=== PATIENT | female | born 2000 | race Caucasian/White ===

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

== ENCOUNTER 2022-01-03 23:30 | Emergency (ER) | payer OTHER ==
[2022-01-04 00:46] LABS: BASOPHILS % (AUTO) 0.3 %; MEAN CORPUSCULAR VOLUME 87.4 fL (81.0-99.0)
[2022-01-04 00:48] LABS: BILIRUBIN,URINE NEGATIVE (NEGATIVE); GLUCOSE, URINE (UA) NEGATIVE (NEGATIVE); KETONES,URINE (UA) >=80 mg/dL (NEGATIVE); LEUKOCYTE ESTERASE, URINE SMALL (NEGATIVE); NITRITE,URINE POSITIVE (NEGATIVE); OCCULT BLOOD,URINE MODERATE (NEGATIVE); PROTEIN,URINE 30 mg/dL (NEGATIVE); UROBILINOGEN,URINE 0.2 (NORMAL) E.U./dL (NORMAL)
[2022-01-04 00:49] LABS: EOSINOPHILS % (AUTO) 0.1 %; HCT - HEMATOCRIT 36.1 % (37.0-47.0); HGB - HEMOGLOBIN 12.2 g/dL (12.0-16.0); LYMPHOCYTES % (AUTO) 9.6 %; MEAN CORPUSCULAR HEMOGLOBIN 29.5 pg (27.0-31.0); MEAN CORPUSCULAR HGB CONC 33.8 g/dL (32.0-36.0); MEAN PLATELET VOLUME 10.1 fL (7.9-10.8); MONOCYTES % (AUTO) 10.3 %; NEUTROPHILS % (AUTO) 79.2 %; PLT - PLATELET COUNT 229 10^3/uL (130-450); RED BLOOD COUNT 4.13 10^6/uL (4.20-5.40); RED CELL DISTRIBUTION WIDTH 12.4 % (12.0-15.0); WHITE BLOOD COUNT 15.3 x10^3/uL (4.8-10.8)
[2022-01-04 00:49] LABS: CLARITY,URINE HAZY (CLEAR)
[2022-01-04 00:50] LABS: HCG UR QUAL NEGATIVE
[2022-01-04 00:53] LABS: ABNORMAL LYMPHS % (MANUAL) 0 %
[2022-01-04 00:55] LABS: BACTERIA,URINE Moderate /HPF (None Seen); RBC,URINE 0-5 /HPF (0-5); SQUAMOUS EPITHELIAL CELL,UR RARE Squamous (<= Few); WBC,URINE >25 /HPF (0-5)
[2022-01-04 00:59] LABS: ALBUMIN 3.6 g/dL (3.2-5.5); BILIRUBIN,TOTAL 0.8 mg/dL (0.2-1.0); CREATININE 0.9 mg/dL (0.4-1.0); POTASSIUM 3.4 mmol/L (3.5-5.0); TOTAL PROTEIN 7.3 g/dL (6.7-8.2)
[2022-01-04] MEDS ORDERED: ACETAMINOPHEN 325 MG TABLET PO STA (01:13)
[2022-01-04 01:24] LABS: BAND NEUTROPHILS % (MANUAL) 3 %; DIFFERENTIAL COMMENT MANUAL DIFFERENTIAL; LYMPHOCYTES # (MANUAL) 2.1 10^3/uL (1.5-3.5); LYMPHOCYTES % (MANUAL) 14 %; MONOCYTES # (MANUAL) 1.4 10^3/uL (0.0-1.0); NEUTROPHILS # (MANUAL) 11.8 10^3/uL (1.5-6.6); PLATELET ESTIMATE, MANUAL NORMAL (130-450,000) (NORMAL); RBC MORPHOLOGY (MULTIPLE) NORMAL APPEARANCE (NORMAL)
--- NOTE | 2022-01-04 01:56 | ED Physician Documentation ---
PD HPI FEMALE - Stated complaint Stated Complaint: FEVER/BACK PX - Chief complaint Chief Complaint: Abd Pain - History obtained from History obtained from: Patient - History of Present Illness Timing - onset: Yesterday - Additional information Additional information: 21-year-old female with no significant past medical history presents for evaluation of fever and urinary frequency. Associated aching, constant, nonradiating right flank pain. This is never happened before. Mother gave patient 600 mg of Tylenol at 4 PM today. They were on their way to a different hospital, however the bridge was closed and so they came here instead. Patient denies known sick contacts, denies dysuria, hematuria, vaginal discharge. Review of Systems Ten Systems: 10 systems reviewed and negative Constitutional: reports: Fever, Chills Eyes: denies: Loss of vision, Decreased vision, Photophobia : reports: Frequency, Other (R flank pain). denies: Dysuria, Hesitancy, Unable to Void, Incontinent Skin: denies: Rash, Lesions, Abrasion (s) PD PAST MEDICAL HISTORY - Past Medical History Past Medical History: Yes Psych: Depression - Past Surgical History Past Surgical History: No - Present Medications Home Medications: Ambulatory Orders Medication Instructions Recorded Confirmed Duloxetine HCl [Cymbalta] 60 mg PO DAILY 01/21/21 01/04/22 Ondansetron Odt [Zofran] 4 mg TL Q6H PRN #10 tablet 01/04/22 cephALEXin [Keflex] 500 mg PO BID #28 cap 01/04/22 - Allergies Allergies/Adverse Reactions: Allergies Allergy/AdvReac Type Severity Reaction Status Date / Time No Known Drug Allergies Allergy Verified 01/04/22 00:19 - Social History Does the pt smoke?: Yes Smoking Status: Current every day smoker Does the pt drink ETOH?: No Does the pt have substance abuse?: No - Immunizations Immunizations are current?: Yes - POLST Patient has POLST: No PD ED PE NORMAL - Vitals Vital signs reviewed: Yes - General General: Alert and oriented X 3, No acute distress, Well developed/nourished - HEENT HEENT: Atraumatic, PERRL, EOMI - Neck Neck: Supple, no meningeal sign, No bony TTP, No adenopathy, C-Spine cleared by NEXUS criteria - Cardiac Cardiac: No murmur, Strong equal pulses, Other (tachycardia) - Respiratory Respiratory: No respiratory distress, Clear bilaterally - Abdomen Abdomen: Soft, Non tender, Non distended, No organomegaly - Female Female : Deferred - Back Back: No spinal TTP, Other (R sided CVA ttp) - Derm Derm: Normal color, Warm and dry, No rash - Extremities Extremities: No deformity, No tenderness to palpate, Normal ROM s pain, No edema - Neuro Neuro: Alert and oriented X 3, security auditor 2-12 intact, No motor deficit, No sensory deficit - Psych Psych: Normal mood, Normal affect Results - Vitals Vitals: Vital Signs - 24 hr 01/04/22 01/04/22 01/04/22 00:16 02:25 02:57 Temperature 39.4 C H 39.4 C H 39.4 C H Heart Rate 149 H 135 H 135 H Respiratory 20 18 18 Rate Blood Pressure 117/73 123/70 123/70 O2 Saturation 100 96 96 Oxygen O2 Source Room air - Labs Labs: Laboratory Tests 01/04/22 01/04/22 01/04/22 00:35 00:35 00:40 WBC 15.3 H RBC 4.13 L Hgb 12.2 Hct 36.1 L MCV 87.4 MCH 29.5 MCHC 33.8 RDW 12.4 Plt Count 229 MPV 10.1 Neut # (Auto) Not Reportable Lymph # (Auto) Not Reportable [place] # (Auto) Not Reportable Eos # (Auto) Not Reportable Baso # (Auto) Not Reportable Absolute Nucleated RBC Not Reportable Total Counted 100 Band Neuts % (Manual) 3 Abnorm Lymph % (Manual) 0 Nucleated RBC % Not Reportable Neutrophils # (Manual) 11.8 H Lymphocytes # (Manual) 2.1 Monocytes # (Manual) 1.4 H Eosinophils # (Manual) 0.0 Basophils # (Manual) 0.0 Differential Comment MANUAL DIFFERENTIAL Platelet Estimate NORMAL (130-450,000) RBC Morph Micro Appear NORMAL APPEARANCE Sodium Potassium Chloride Carbon Dioxide Anion Gap BUN Creatinine Estimated GFR (MDRD) Glucose Calcium Total Bilirubin AST ALT Alkaline Phosphatase Total Protein Albumin Globulin Albumin/Globulin Ratio Lipase Urine Color YELLOW Urine Clarity HAZY Urine pH 6.0 Ur Specific [place] 1.010 Urine Protein 30 H Urine Glucose (UA) NEGATIVE Urine Ketones >=80 H Urine Occult Blood MODERATE H Urine Nitrite POSITIVE H Urine Bilirubin NEGATIVE Urine Urobilinogen 0.2 (NORMAL) Ur Leukocyte Esterase SMALL H Urine RBC 0-5 Urine WBC >25 H Ur Squamous Epith Cells RARE Squamous Urine Bacteria Moderate H Ur Microscopic Review INDICATED Urine Culture Comments INDICATED Urine HCG, Qual NEGATIVE Nasal Adenovirus (PCR) Nasal B. parapertussis DNA (PCR) Nasal Coronavir 229E PCR Nasal Coronavir HKU1 PCR Nasal Coronavir NL63 PCR Nasal Coronavir OC43 PCR Nasal Enterovir/Rhinovir PCR Nasal Influenza B PCR Nasal Influenza A PCR Nasal Parainfluen 1 PCR Nasal Parainfluen 2 PCR Nasal Parainfluen 3 PCR Nasal Parainfluen 4 PCR Nasal RSV (PCR) Nasal B.pertussis DNA PCR Nasal C.pneumoniae (PCR) Ke Human Metapneumo PCR Nasal M.pneumoniae (PCR) Nasal SARS-CoV-2 (PCR) 01/04/22 01/04/22 00:40 01:25 WBC RBC Hgb Hct MCV MCH MCHC RDW Plt Count MPV Neut # (Auto) Lymph # (Auto) [place] # (Auto) Eos # (Auto) Baso # (Auto) Absolute Nucleated RBC Total Counted Band Neuts % (Manual) Abnorm Lymph % (Manual) Nucleated RBC % Neutrophils # (Manual) Lymphocytes # (Manual) Monocytes # (Manual) Eosinophils # (Manual) Basophils # (Manual) Differential Comment Platelet Estimate RBC Morph Micro Appear Sodium 131 L Potassium 3.4 L Chloride 97 L Carbon Dioxide 23 Anion Gap 11.0 BUN 10 Creatinine 0.9 Estimated GFR (MDRD) 81 L Glucose 122 H Calcium 9.0 Total Bilirubin 0.8 AST 17 ALT 12 Alkaline Phosphatase 53 Total Protein 7.3 Albumin 3.6 Globulin 3.7 Albumin/Globulin Ratio 1.0 Lipase 31 Urine Color Urine Clarity Urine pH Ur Specific [place] Urine Protein Urine Glucose (UA) Urine Ketones Urine Occult Blood Urine Nitrite Urine Bilirubin Urine Urobilinogen Ur Leukocyte Esterase Urine RBC Urine WBC Ur Squamous Epith Cells Urine Bacteria Ur Microscopic Review Urine Culture Comments Urine HCG, Qual Nasal Adenovirus (PCR) NOT DETECTED Nasal B. parapertussis DNA (PCR) NOT DETECTED Nasal Coronavir 229E PCR NOT DETECTED Nasal Coronavir HKU1 PCR NOT DETECTED Nasal Coronavir NL63 PCR NOT DETECTED Nasal Coronavir OC43 PCR NOT DETECTED Nasal Enterovir/Rhinovir PCR NOT DETECTED Nasal Influenza B PCR NOT DETECTED Nasal Influenza A PCR NOT DETECTED Nasal Parainfluen 1 PCR NOT DETECTED Nasal Parainfluen 2 PCR NOT DETECTED Nasal Parainfluen 3 PCR NOT DETECTED Nasal Parainfluen 4 PCR NOT DETECTED Nasal RSV (PCR) NOT DETECTED Nasal B.pertussis DNA PCR NOT DETECTED Nasal C.pneumoniae (PCR) NOT DETECTED Ke Human Metapneumo PCR NOT DETECTED Nasal M.pneumoniae (PCR) NOT DETECTED Nasal SARS-CoV-2 (PCR) NOT DETECTED PD MEDICAL DECISION MAKING - ED course Complexity details: reviewed results, re-evaluated patient, considered differential, d/w patient, d/w family ED course: Well-appearing female with fever and flank pain. Found to have significant urinary tract infection. Consider early uncomplicated pyelonephritis. Patient was given Tylenol in the emergency department for fever control. She and her mo ther were counseled on the results of the patient's labs. Patient be discharged on Keflex. Patient counseled to drink plenty of fluids, wipe from front to back after using the restroom, and to urinate after intercourse. Tylenol and Motrin advised for fever and pain. PCP follow-up advised. Departure - Departure Disposition: Home, Self Care Clinical Impression: Pyelonephritis Condition: Stable Instructions: ED Kidney Infec Female Prescriptions: cephALEXin [Keflex] 500 mg PO BID #28 cap Ondansetron Odt [Zofran] 4 mg TL Q6H PRN #10 tablet PRN Reason: Nausea / Vomiting Comments: Today you are being diagnosed with a kidney infection. It is important that you take all of your antibiotics as prescribed. You may take Tylenol and Motrin as needed for fever and pain. If you feel nauseous you may take a Zofran tablet under your tongue as needed. Drink plenty of fluids, especially water. When you use the restroom wipe from front to back. Please follow-up with your primary care physician. Discharge Date/Time: 01/04/22 02:56
[2022-01-04 02:29] LABS: B. PARAPERTUSSIS- RESP PCR PAN NOT DETECTED; B. PERTUSSIS- RESP PCR PANEL NOT DETECTED; C. PNEUMONIAE- RESP PCR PANEL NOT DETECTED; CORONAVIRUS 229E-RESP PCR NOT DETECTED; CORONAVIRUS HKU1-RESP PCR NOT DETECTED; CORONAVIRUS NL63-RESP PCR NOT DETECTED; CORONAVIRUS OC43-RESP PCR NOT DETECTED; HUMAN METAPNEUMOVIRUS NOT DETECTED; INFLUENZA A- RESP PCR PANEL NOT DETECTED; INFLUENZA B - RESP PCR PANEL NOT DETECTED; M. PNEUMONIAE- RESP PCR PANEL NOT DETECTED; PARAINFLUENZA VIRUS 1 NOT DETECTED; PARAINFLUENZA VIRUS 2 NOT DETECTED; PARAINFLUENZA VIRUS 3 NOT DETECTED; PARAINFLUENZA VIRUS 4 NOT DETECTED; RHINOVIRUS/ENTEROVIRUS NOT DETECTED; RSV- RESP PCR PANEL NOT DETECTED; SARS-CoV-2 -RESP PCR PANEL NOT DETECTED
[2022-01-04 02:37] VITALS: BP 123/70
== END 2022-01-04 02:56 | disposition home or self-care (01) ==
LOC: ED 23:30
DX: N12 Tubulo-interstitial nephritis, not specified as acute or chronic (principal); F17.200 Nicotine dependence, unspecified, uncomplicated; Z20.822 Contact with and (suspected) exposure to COVID-19
CPT/HCPCS: 36415; 80053; 81001; 81025; 83690; 85025; 87077; 87086; 87181; 87633; 99283; 99284; A9270; 81003

== ENCOUNTER 2022-05-05 18:34 | Outpatient (CLI) | payer OTHER | END 2022-05-05 23:59 | disposition critical access hospital (66) | LOC: EMS 18:34 | DX: R45.851 Suicidal ideations (principal); R45.89 Other symptoms and signs involving emotional state | CPT/HCPCS: A0425; A0429 ==

== ENCOUNTER 2022-05-05 18:49 | Emergency (ER) | payer OTHER ==
--- NOTE | 2022-05-05 19:22 | ED Physician Documentation ---
History of Present Illness - Stated complaint Stated Complaint: SI - Chief complaint Chief Complaint: MHE - History obtained from History obtained from: Patient - Additonal information Additional information: This is a 21-year-old female with a past medical history of depression and prior drug and alcohol use, prior suicide attempts who presents via the police department after she was found outside when he is drunk and reported to have taken for Xanax and taken 3 shots of alcohol in order to kill herself. Patient states that her boyfriend broke up with her today which is why she wanted to hurt herself. Patient is now stating she will not speak to me anymore unless her ex-boyfriend is allowed come hold her hand. She States she is no longer suicidal and that she has a right is a "21-year-old" to walk out of here whenever she wants. She states she is not going to harm herself or others. She states she plans to go to a rehab and mental health facility in June because she believes she has undiagnosed bipolar disorder. Review of Systems Ten Systems: 10 systems reviewed and negative PD PAST MEDICAL HISTORY - Past Medical History Past Medical History: Yes Psych: Depression - Past Surgical History Past Surgical History: No - Present Medications Home Medications: Ambulatory Orders Medication Instructions Recorded Confirmed Duloxetine HCl [Cymbalta] 60 mg PO DAILY 01/21/21 01/04/22 Ondansetron Odt [Zofran] 4 mg TL Q6H PRN #10 tablet 01/04/22 cephALEXin [Keflex] 500 mg PO BID #28 cap 01/04/22 - Allergies Allergies/Adverse Reactions: Allergies Allergy/AdvReac Type Severity Reaction Status Date / Time No Known Drug Allergies Allergy Verified 01/04/22 00:19 - Social History Does the pt smoke?: Yes Smoking Status: Current every day smoker Does the pt drink ETOH?: No Does the pt have substance abuse?: No - Immunizations Immunizations are current?: Yes - POLST Patient has POLST: No PD ED PE NORMAL - Vitals Vital signs reviewed: Yes - General General: Alert and oriented X 3, No acute distress, Well developed/nourished - HEENT HEENT: Atraumatic, Pharynx benign - Cardiac Cardiac: RRR, No murmur - Respiratory Respiratory: No respiratory distress, Clear bilaterally - Abdomen Abdomen: Normal bowel sounds, Soft - Derm Derm: Normal color, Warm and dry, No rash - Neuro Neuro: Alert and oriented X 3, No motor deficit, No sensory deficit, Normal speech Eye Opening: Spontaneous Motor: Obeys Commands Verbal: Oriented GCS Score: 15 - Psych Psych: Other (indignant. ) Results - Vitals Vitals: Vital Signs - 24 hr 05/05/22 18:50 Temperature 36.6 C Heart Rate 85 Respiratory 18 Rate Blood Pressure 130/84 H O2 Saturation 95 Oxygen O2 Source Room air PD MEDICAL DECISION MAKING - ED course Complexity details: d/w patient ED course: 21-year-old female who presents after reported Suicide attempt in which she took 3 shots of alcohol and took 4 Xanax however she is now saying this was not a suicide attempt and just an attempt to "turn off" for a while after Her boyfriend broke up with her. She states she plans to go to rehab in June and would like to get mental health therapy going forward but does not want to stay here tonight and states she is now not suicidal or harm to herself or others. I discussed with the patient at this time I am concerned for her safety and recommend that she stay to have an evaluation and be evaluated by telepsych for possible clearance or stay here until the morning for evaluation by social work. We will obtain routine lab work for clearance and consult telepsych. Pt to remain on suicide precautions. Departure - Departure Condition: Good
[2022-05-05 20:18] LABS: MUDS CUTOFF CONCENTRATIONS CUTOFF CONC BELOW:
[2022-05-05 20:21] LABS: BILIRUBIN,URINE NEGATIVE (NEGATIVE); GLUCOSE, URINE (UA) NEGATIVE (NEGATIVE); KETONES,URINE (UA) NEGATIVE (NEGATIVE); LEUKOCYTE ESTERASE, URINE NEGATIVE (NEGATIVE); NITRITE,URINE NEGATIVE (NEGATIVE); OCCULT BLOOD,URINE NEGATIVE (NEGATIVE); PH,URINE 5.5 PH (5.0-7.5); PROTEIN,URINE NEGATIVE (NEGATIVE); UROBILINOGEN,URINE 0.2 (NORMAL) E.U./dL (NORMAL)
[2022-05-05 20:28] LABS: CLARITY,URINE CLEAR (CLEAR); HCG UR QUAL NEGATIVE
[2022-05-05 20:40] LABS: BASOPHILS % (AUTO) 0.5 %; EOSINOPHILS # (AUTO) 0.1 10^3/uL (0.0-0.7); EOSINOPHILS % (AUTO) 0.6 %; HCT - HEMATOCRIT 42.6 % (37.0-47.0); HGB - HEMOGLOBIN 13.9 g/dL (12.0-16.0); LYMPHOCYTES # (AUTO) 2.3 10^3/uL (1.5-3.5); LYMPHOCYTES % (AUTO) 29.8 %; MEAN CORPUSCULAR HEMOGLOBIN 28.2 pg (27.0-31.0); MEAN CORPUSCULAR HGB CONC 32.6 g/dL (32.0-36.0); MEAN CORPUSCULAR VOLUME 86.4 fL (81.0-99.0); MEAN PLATELET VOLUME 10.2 fL (7.9-10.8); MONOCYTES # (AUTO) 0.3 10^3/uL (0.0-1.0); MONOCYTES % (AUTO) 3.9 %; NEUTROPHILS # (AUTO) 5.1 10^3/uL (1.5-6.6); NEUTROPHILS % (AUTO) 64.9 %; PLT - PLATELET COUNT 376 10^3/uL (130-450); RED BLOOD COUNT 4.93 10^6/uL (4.20-5.40); RED CELL DISTRIBUTION WIDTH 12.6 % (12.0-15.0); WHITE BLOOD COUNT 7.8 x10^3/uL (4.8-10.8)
[2022-05-05 20:45] LABS: AMPHETAMINE SCREEN,URINE NEGATIVE (NEGATIVE); BARBITURATE SCREEN,UR NEGATIVE (NEGATIVE); BENZODIAZEPINES SCREEN, URINE NEGATIVE (NEGATIVE); COCAINE SCREEN URINE NEGATIVE (NEGATIVE); METHADONE SCREEN, URINE NEGATIVE (NEGATIVE); METHAMPHETAMINES SCREEN, URINE NEGATIVE (NEGATIVE); OPIATE SCREEN, URINE NEGATIVE (NEGATIVE); OXYCODONE SCREEN, URINE NEGATIVE (NEGATIVE); PROPOXYPHENE SCREEN, URINE NEGATIVE (NEGATIVE); THC CANNABINOID SCREEN, URINE NEGATIVE (NEGATIVE); TRICYCLIC ANTIDEPRESSANT,URINE NEGATIVE (NEGATIVE)
[2022-05-05] MEDS ORDERED: diphenhydrAMINE INJ 50 MG/ML VIAL IM STA (20:56)
[2022-05-05] MEDS ORDERED: HALOPERIDOL 5 MG/ML VIAL IM STA (20:56)
[2022-05-05] MEDS ORDERED: KETAMINE 500 MG/10 ML VIAL IM STA ×2 (20:56→21:01)
[2022-05-05 20:57] LABS: ACETAMINOPHEN < 10 ug/mL (10-30); ALBUMIN 4.7 g/dL (3.2-5.5); ALBUMIN/GLOBULIN RATIO 1.3 (1.0-2.2); ALKALINE PHOSPHATASE 54 IU/L (42-121); ALT ALANINE AMINOTRANSFERASE 15 IU/L (10-60); AST ASPARTATE AMINOTRANSFERASE 21 IU/L (10-42); BILIRUBIN,TOTAL 0.5 mg/dL (0.2-1.0); BUN - BLOOD UREA NITROGEN 9 mg/dL (6-20); CALCIUM 9.7 mg/dL (8.5-10.3); CARBON DIOXIDE - CO2 28 mmol/L (21-32); CHLORIDE 103 mmol/L (101-111); CREATININE 0.5 mg/dL (0.4-1.0); GFR - MDRD 159 (>89); GLUCOSE 93 mg/dL (70-100); LIPASE 26 U/L (22-51); POTASSIUM 3.6 mmol/L (3.5-5.0); SALICYLATE < 6.0 mg/dL; SODIUM 142 mmol/L (135-145); TOTAL PROTEIN 8.4 g/dL (6.7-8.2)
--- NOTE | 2022-05-05 21:09 | ED Physician Documentation ---
ED Addendum - Addendum Addendum: 05/06/22 02:35 Patient received a signout from off going physician, please see their d ocumentation for further detail. In short patient is brought to the emergency department with [facility] paperwork concerning for active suicidal ideation. Patient initially appears quite intoxicated however continues to endorse for active suicidal ideation. Begin engaging in behavior in the emergency department demonstrating that she is a danger to herself and others such as jumping out of her gurney, throwing herself on the ground, screaming profanity and other threatening statements of both myself and staff. Multiple attempts were made to verbally de-escalate and redirect her however ultimately it was necessary to place her in four-point restraints and provide chemical calming in the form of Haldol, Benadryl and ketamine. She was monitored carefully throughout the entirety of my shift. Reevaluation she was found to be resting comfortably and in no acute distress. All of her lab work is reviewed. She is noted to have a blood ethanol of 152 but no other significant abnormality. At this time I am waiting for sedation to wear off such that she is able to have a cogent conversation with myself and with telemetry behavioral health.
--- NOTE | 2022-05-05 21:47 | ED Physician Documentation ---
Restraint [id number] - Immediate Situation Face to Face Evaluation Date: 05/05/22 Face to Face Evaluation Time: 21:15 Restraint Classification: Violent, physical, chemical Restraint Type: Locked extremity - Patient's Reaction & Behaviors Safety: Non-compliant Verbal: Screaming/Yelling Harm: Potential harm to others, Verbalizes intent to harm Physical: Fighting restraints, Spitting Other: Attempting removal of medically necessary device(s) - Behavioral Condition Attitude: Other (Angry, uncooperative, threatening) Behavior: Belligerent Orientation: Person, Place, Time Mood: Labile - Evaluation Review of Systems: Unable to obtain comprehensive review of systems secondary to the patient's psychiatric state Pertinent History/Illicit Drugs/Medications/Results: Patient reports using alcohol and Xanax in attempt to harm herself earlier this evening - Plan Need to Continue or Terminate Violent or Chemical Restraint: We will continue restraints for the time being
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
[2022-05-06 10:38] VITALS: BP 106/57
== END 2022-05-06 10:58 | disposition home or self-care (01) ==
LOC: EDUNIT# → ED 18:49
DX: F17.200 Nicotine dependence, unspecified, uncomplicated (principal); R45.851 Suicidal ideations; F13.14 Sedative, hypnotic or anxiolytic abuse with sedative, hypnotic or anxiolytic-induced mood disorder; F10.24 Alcohol dependence with alcohol-induced mood disorder; F43.22 Adjustment disorder with anxiety; Y90.6 Blood alcohol level of 120-199 mg/100 ml; Z78.1 Physical restraint status; Z20.822 Contact with and (suspected) exposure to COVID-19
CPT/HCPCS: 36415; 80053; 80306; 80307; 80320; 80329; 81003; 81025; 83690; 84443; 85025; 87635; 96372; 99281; 99285; G0425; J1200; Q3014; 81001; 87086